=== PATIENT | male | born 1960 | race Two or more races ===

== ENCOUNTER 2019-01-18 08:15 | Emergency (ER) | payer MEDICAID ==
--- NOTE | 2019-02-07 14:56 | ER Physician Documentation ---
DATE OF SERVICE: 01/18/2019 HISTORY OF PRESENT ILLNESS: This is a 58-year-old male. The patient presents to the Emergency Room with onset of painless red eyes for 2 days. The patient denies eye pain, decrease in vision or visual changes, denies trauma. Admits to scant ocular discharge. The patient denies headache, sore throat, neck pain, chest pain, shortness of breath or abdominal pain. The patient's last tetanus shot is less than 5 years, is up to date. PAST MEDICAL HISTORY: Per nurse's notes. MEDICATIONS: Per nurse's notes. ALLERGIES: No known allergies. FAMILY HISTORY: Not known. REVIEW OF SYSTEMS: Essentially noncontributory. PHYSICAL EXAMINATION: GENERAL: The patient is in no acute distress, alert and oriented x 3. HEENT: Eyes: Visual acuity 20/20 in both eyes. Positive bilateral conjunctival injection with no foreign bodies. Corneas are clear with no foreign bodies, no corneal abrasions, no hyphemas. Pupils equal, round, reactive to light. Fundi benign. Extraocular muscles within normal limits. Lids are within normal limits. No periorbital cellulitis. No ocular foreign bodies. The rest of the HEENT exam is negative. NECK: Supple. No meningeal signs. CARDIOVASCULAR: Regular rate and rhythm. LUNGS: Clear with good breath sounds bilaterally. ABDOMEN: Soft, nontender, normoactive bowel sounds, no pulsatile mass. EXTREMITIES: No edema, clubbing or cyanosis. NEUROLOGIC: No focal signs. HOSPITAL COURSE: The patient improved, was asymptomatic upon discharge. The patient was given a prescription for tobramycin ophthalmic eyedrops, 1 drop to both eyes 4 times a day for 7 days. Eye care instructions, conjunctivitis care instructions provided. Referred to Ophthalmology as soon as possible. Otherwise, follow up with her primary physician in one day as needed. Return to the Emergency Room as needed if concerned. Aftercare instructions given for all diagnoses. DIAGNOSES: Include red eyes, bilateral conjunctivitis. JOB# [id number]
== END 2019-01-18 08:43 | disposition home or self-care (01) ==
LOC: ER 08:15
DX: H10.9 Unspecified conjunctivitis (principal)
CPT/HCPCS: Z7502

== ENCOUNTER 2019-02-25 15:17 | Emergency (ER) | payer MEDICAID ==
--- NOTE | 2019-02-25 17:16 | ED Physician Chart ---
ED Chief Complaint/HPI - Patient Information Date Seen:: 02/25/19 Time Seen:: 15:20 Chief Complaint:: Nasal congestion for 4 days. History of Present Illness:: Pt came at a time when the ER was full without an open bed. Pt was seen immediately by me when he was put in a bed. Pt came in by private auto because of nasal congestion for 4 days. No fever or dyspnea. Pt has had occasional nonproductive cough. Pt has been taking po well without N/V/D. Allergies:: Allergies Allergy/AdvReac Type Severity Reaction Status Date / Time No Known Allergies Allergy Verified 01/18/19 08:24 Vitals:: Vital Signs - 8 hr 02/25/19 15:49 Temp 97.3 F HR 69 RR 15 BP 155/88 O2 Sat % 99 Historian:: Patient Family MD/PCP:: Dr. Dee. LMP:: N/A Review:: Nurse's Note Reviewed ED Review of Systems - Review of Systems General/Constitutional: No fever, No chills, No weight loss, No weakness, No edema, No loss of appetite Skin: No skin lesions, No rash, No bruising Head: No headache, No light-headedness Eyes: No loss of vision, No pain ENT: No earache, Nasal drainage (?), No sore throat Neck: No neck pain, No swelling, No stiffness, No mass noted Cardio Vascular: No chest pain Pulmonary: No SOB, Cough (occasional nonproductive cough), No wheezing GI: No nausea, No vomiting, No diarrhea, No pain G/U: No dysuria, No frequency, No hematuria Musculoskeletal: No bone or joint pain Endocrine: No polyuria, No polydipsia Psychiatric: No prior psych history Hematopoietic: No bruising, No lymphadenopathy Allergic/Immuno: No urticaria, No angioedema Neurological: No syncope, No focal symptoms, No headache ED Past Medical History - Past Medical History Past Medical History: HTN, Dyslipidemia Family History: Diabetes Melitus Social History: Non Smoker, No Alcohol, No Drug Use, , Employed, Other ( lives with his .) Employment:: maintenance machinist. Surgical History: Appendectomy (at age 9.) Psychiatricy History: None Medication: Reviewed Family Medical History - Family Member Mother History Unknown: Yes Ethnicity: ED Physical Exam - Physical Examination General/Constitutional: Awake, Well-developed, well-nourished, Alert, No distress, GCS 15, Non-toxic appearing, Ambulatory Other Gen/Cons comments:: Breathes comfortably, speaks clearly, and interacts appropriately. Head: Atraumatic Eyes: Lids, conjuctiva normal, PERRL, EOMI Skin: Nl inspection, No rash, No ecchymosis, No lymphadenopathy ENMT: External ears, nose nl, TM canals nl, Nasal exam nl, Oropharynx nl Other ENMT comments:: except there is mild light yellow postnasal drip. Neck: Nontender, Full ROM w/o pain, No nuchal rigidity, No mass, No stridor Respiratory: Nl effort/Exclusion, Clear to Auscultation, No Wheeze/Rhonchi/Rales Cardio Vascular: RRR, No murmur, gallop, rubs GI: No tenderness/rebounding/guarding, No organomegaly, Normal BS's, Nondistended Other GI comments:: Abdomen is soft. Extremities: No tenderness or effusion, Full ROM, normal strength in all extremities, No edema Neuro/Psych: Alert/oriented (oriented x 3), Judgement/insight normal, Mood normal, No focal deficits ED Septic Shock - . Is Septic Shock (SBP<90, OR Lactate>4 mmol\L) present?: No - <6hrs of presentation: Vital Signs: Vital Signs - 8 hr 02/25/19 15:49 Temp 97.3 F HR 69 RR 15 BP 155/88 O2 Sat % 99 ED Reassessment (Disposition) - Reassessment Reassessment:: 1745 Pt remains stable and comfortable. Pt requests to go home now. Aftercare instructions have been given. - Diagnosis Diagnosis:: Acute sinusitis. Stable. - Aftercare/Follow up Instructions Aftercare/Follow-Up Instructions:: Refer to Discharge Instructions Notes:: Bed rest for today. Bactrim DS one tab po q12h for 14 days. D-28 R-0 Increase oral hydration. F/U with Dr. Black or PCP of patient's choice in one day for recheck. Return to ER immediately if condition worsens or if any further questions/problems. - Patient Disposition Discharge/Transfer:: Home Time:: 17:55 Condition at Disposition:: Stable
== END 2019-02-25 18:00 | disposition home or self-care (01) ==
LOC: ER 15:17
DX: J01.90 Acute sinusitis, unspecified (principal); I10 Essential (primary) hypertension; E78.5 Hyperlipidemia, unspecified; Z90.49 Acquired absence of other specified parts of digestive tract
CPT/HCPCS: Z7502

== ENCOUNTER 2019-07-06 18:23 | Emergency (ER) | payer MEDICAID ==
--- NOTE | 2019-07-06 18:42 | ED Physician Chart ---
ED Chief Complaint/HPI - Patient Information Date Seen:: 07/06/19 Time Seen:: 18:36 Chief Complaint:: left posterior rib pain History of Present Illness:: this is a 58 yo male with left chest pain for yrs and he is concern about the pain getting worse. he also is concern about both arm spasms and weakness. he has smoked in the past and denies drinking. he admits to hypertension but denies heart disease and diabetes. Allergies:: Allergies Allergy/AdvReac Type Severity Reaction Status Date / Time No Known Allergies Allergy Verified 01/18/19 08:24 Vitals:: Vital Signs - 8 hr 07/06/19 18:32 Temp 98.2 F HR 71 RR 16 BP 137/86 O2 Sat % 99 Historian:: Patient Review:: Nurse's Note Reviewed ED Review of Systems - Review of Systems General/Constitutional: No fever, No chills, No weight loss, No weakness, No diaphoresis, No edema, No loss of appetite Skin: No skin lesions, No rash, No bruising Head: No headache, No light-headedness Eyes: No loss of vision, No pain, No diplopia ENT: No earache, No nasal drainage, No sore throat, No tinnitus Neck: No neck pain, No swelling, No thyromegaly, No stiffness, No mass noted Cardio Vascular: No chest pain, No palpitations, No PND, No orthopnea, No edema , other (left posterior chest wall pain) Pulmonary: No SOB, No cough, No sputum, No wheezing GI: No nausea, No vomiting, No diarrhea, No pain, No melena, No hematochezia, No constipation, No hematemesis G/U: No dysuria, No frequency, No hematuria Musculoskeletal: No bone or joint pain, No back pain, No muscle pain Endocrine: No polyuria, No polydipsia Psychiatric: No prior psych history, No depression, No anxiety, No suicidal ideation Hematopoietic: No bruising, No lymphadenopathy Allergic/Immuno: No urticaria, No angioedema Neurological: No syncope, No focal symptoms, No weakness, No paresthesia, No headache, No seizure, No dizziness, No confusion, No vertigo ED Past Medical History - Past Medical History Obtainable: Yes Past Medical History: HTN, Dyslipidemia Family History: None Social History: Non Smoker, Alcohol, No Drug Use Surgical History: None Psychiatricy History: None Medication: Reviewed Family Medical History - Family Member Mother History Unknown: Yes Ethnicity: ED Physical Exam - Physical Examination General/Constitutional: Awake, Well-developed, well-nourished, Alert, No distress, GCS 15, Non-toxic appearing, Ambulatory Head: Atraumatic Eyes: Lids, conjuctiva normal, PERRL, EOMI Skin: Nl inspection, No rash, No skin lesions, No ecchymosis, Well hydrated, No lymphadenopathy ENMT: External ears, nose nl, Nasal exam nl, Lips, teeth, gums nl Neck: Nontender, Full ROM w/o pain, No JVD, No nuchal rigidity, No bruit, No mass, No stridor Respiratory: Nl effort/Exclusion, Clear to Auscultation, No Wheeze/Rhonchi/Rales Other Respiratory comments:: there is a tenderness on the left 7th rib area. Cardio Vascular: RRR, No murmur, gallop, rubs, NL S1 S2 GI: No tenderness/rebounding/guarding, No organomegaly, No hernia, Normal BS's, Nondistended, No mass/bruits, No McBurney tenderness : No CVA tenderness Extremities: No tenderness or effusion, Full ROM, normal strength in all extremities, No edema, Normal digits & nails Neuro/Psych: Alert/oriented, DTR's symmetric, Normal sensory exam, Normal motor strength, Judgement/insight normal, Mood normal, Normal gait, No focal deficits Misc: Normal back, No paraspinal tenderness ED Labs/Radiology/EKG Results - Radiology Results Results: chest x-ray = nad - EKG Interpretations EKG Time:: 18:44 Rate & Rhythm: rate = 71 sinus [place]: right axis ED Assessment - Assessment General Assessment: chest wall pain ED Septic Shock - . Is Septic Shock (SBP<90, OR Lactate>4 mmol\L) present?: No - <6hrs of presentation: Vital Signs: Vital Signs - 8 hr 07/06/19 18:32 Temp 98.2 F HR 71 RR 16 BP 137/86 O2 Sat % 99 ED Reassessment (Disposition) - Reassessment Reassessment Condition:: Improved - Diagnosis Diagnosis:: left chest wall - Aftercare/Follow up Instructions Aftercare/Follow-Up Instructions:: Counseled pt regarding lab results/diagnosis & need follow up, Refer to Discharge Instructions, Counseled pt & family regarding lab results/diagnosis & need follow up Medication Prescribed:: motrin - Patient Disposition Discharge/Transfer:: Home Condition at Disposition:: Improved
[2019-07-06 18:52] LABS: % BASOPHILS 1.6 % (0.0-2.0); % EOSINOPHILS 1.2 % (0.0-5.0); % LYMPHOCYTES 23.8 % (20.0-50.0); % MONOCYTES 11.3 % (2.0-10.0); % NEUTROPHILS 62.1 % (40.0-80.0); BASOPHILE ABSOLUTE 0.1 Th/cumm (0-0.2); EOSINOPHILE ABSOLUTE 0.1 Th/cmm (0.1-0.4); HEMATOCRIT 46.5 % (41.0-60); HEMOGLOBIN 16.1 gm/dL (12-16); LYMPHOCYTE ABSOLUTE 1.6 Th/cmm (1.5-3.0); MEAN CELL VOLUME 90.7 fl (80-99); MEAN CORPUSCULAR HEMOGLOBIN 31.3 pg (26.0-30.0); MEAN CORPUSCULAR HGB CONC 34.5 pg (28.0-36.0); MONOCYTE ABSOLUTE 0.8 Th/cmm (0.3-1.0); NEUTROPHILE ABSOLUTE 4.2 Th/cmm (1.8-8.0); PLATELET COUNT 222 Th/cmm (150-400); RED BLOOD COUNT 5.13 Mil/cmm (4.30-5.70); WHITE BLOOD COUNT 6.8 Th/cmm (4.8-10.8)
[2019-07-06 19:11] LABS: ALB/GLOB RATIO 1.3 (1.0-1.8); ALBUMIN 4.3 gm/dL (4.2-5.5); ALKALINE PHOSPHATASE 45 U/L (34-104); ANION GAP 11.1 (7.0-16.0); BILIRUBIN,TOTAL 0.5 mg/dL (0.3-1.0); BUN - UREA NITROGEN 19 mg/dL (7-25); CALCIUM SERUM 9.3 mg/dL (8.6-10.3); CARBON DIOXIDE 29.6 mEq/L (21.0-31.0); CHLORIDE 102 mEq/L (98-107); CREATININE - SERUM 1.1 mg/dL (0.7-1.3); GFR AFRICAN-AMERICAN > 60.0 ml/min (>90); GFR NON AFRICAN-AMERICAN > 60.0 ml/min; GLUCOSE 96 mg/dL (70-105); POTASSIUM SERUM 3.7 mEq/L (3.5-5.1); SGOT 28 U/L (13-39); SGPT/ALT 38 U/L (7-52); SODIUM SERUM 139 mEq/L (136-145); TOTAL PROTEIN,SERUM 7.6 gm/dL (6.0-8.3)
[2019-07-06 19:34] LABS: URINE SOURCE CLEAN C
[2019-07-06 19:39] LABS: URINE BILIRUBIN NEGATIVE (NEGATIVE); URINE BLOOD NEGATIVE (NEGATIVE); URINE GLUCOSE (UA) NEGATIVE (NEGATIVE); URINE KETONE TRACE mg/dL (NEGATIVE); URINE LEUKOCYTE ESTERASE NEGATIVE (NEGATIVE); URINE NITRATE NEGATIVE (NEGATIVE); URINE PH 7.5 (4.6 - 8.0); URINE PROTEIN NEGATIVE (NEGATIVE); URINE UROBILINOGEN 0.2 E.U./dL (0.2 - 1.0)
[2019-07-06 19:47] LABS: URINE CLARITY HAZY (CLEAR); URINE COLOR YELLOW; URINE MICROSCOPIC INDICATED? YES
[2019-07-06 19:48] LABS: URINE AMORPHOUS SEDIMENT MODERATE URATES (NONE SEEN); URINE BACTERIA MODERATE /hpf (NONE SEEN); URINE EPITHELIAL CELLS NONE SEEN /lpf (FEW); URINE RBC 0-2 /hpf (0-5); URINE WBC 0-2 /hpf (0-5)
[2019-07-06 19:50] LABS: AMPHETAMINE URINE NEGATIVE (NEGATIVE); BARBITURATES URINE NEGATIVE (NEGATIVE); BENZODIAZEPINES QUAL URINE NEGATIVE (NEGATIVE); CANNABINOID THC NEGATIVE (NEGATIVE); METHADONE URINE NEGATIVE (NEGATIVE); METHAMPHETAMINES QUAL URINE NEGATIVE (NEGATIVE); OPIATES (MORPHINE) QUAL. URINE NEGATIVE (NEGATIVE); PHENCYCLIDINE (PCP) URINE NEGATIVE (NEGATIVE); TRICYCLICS (TCA) QUAL. URINE NEGATIVE (NEGATIVE)
[2019-07-06 19:51] LABS: COCAINE METABOLITE QUAL URINE NEGATIVE (NEGATIVE)
--- NOTE | 2019-07-07 08:54 | Diagnostic Imaging Report ---
CHEST X-RAY: AP view INDICATION: Cough COMPARISON: None FINDINGS: There is no focal consolidation or pleural effusions The heart is normal in size. The osseous structures demonstrate no acute abnormalities. IMPRESSION: No acute cardiopulmonary disease.
== END 2019-07-06 20:14 | disposition home or self-care (01) ==
LOC: ER 18:23
DX: R07.89 Other chest pain (principal); I10 Essential (primary) hypertension; E78.5 Hyperlipidemia, unspecified
CPT/HCPCS: 36415-UA; 71045-TC; 80053-TC; 80307; 81001-TC; 84484-TC; 85025-TC; 87086-90; 93005